=== PATIENT | male | born 1955 | race Caucasian/White ===

== ENCOUNTER → 2022-10-31 11:00 | Outpatient (BNVA) | payer MEDICARE, SELFPAY | PROVIDERS: Visit Provider Psychiatry & Neurology Psychiatry | DX: F41.1 Generalized anxiety disorder (principal); F98.8 Other specified behavioral and emotional disorders with onset usually occurring in childhood and adolescence; I10 Essential (primary) hypertension | CPT/HCPCS: 90833; 99212 ==

== ENCOUNTER → 2023-01-25 14:31 | Outpatient (BNVA) | payer MEDICARE, SELFPAY | PROVIDERS: PCP Internal Medicine; Visit Provider Psychiatry & Neurology Psychiatry | DX: F98.8 Other specified behavioral and emotional disorders with onset usually occurring in childhood and adolescence (principal); F90.9 Attention-deficit hyperactivity disorder, unspecified type; F41.1 Generalized anxiety disorder | CPT/HCPCS: 99212 ==

== ENCOUNTER → 2023-07-11 16:33 | Outpatient (BNVA) | payer MEDICARE, SELFPAY | PROVIDERS: PCP Internal Medicine; Visit Provider Psychiatry & Neurology Psychiatry | DX: F98.8 Other specified behavioral and emotional disorders with onset usually occurring in childhood and adolescence (principal); F41.1 Generalized anxiety disorder | CPT/HCPCS: 90833; 99212 ==

== ENCOUNTER 2023-09-06 16:50 | Outpatient (AMB) | payer MEDICARE, SELFPAY ==
--- NOTE | 2023-09-06 15:48 | MHC.OFFVISPS ---
Intake Vital Signs 09/06/23 15:56 BP 120/90 H Pulse 80 Intake Visit Reasons: depression Allergies Iodinated Contrast Media Allergy (Intermediate, Verified 10/31/22 11:11) Rash Medication List - Last Reconciled 09/06/23 by Toribio Echevarria MD bupropion HCl 100 mg PO DAILY metoprolol succinate ER 50 mg PO DAILY sertraline 100 mg PO DAILY HPI- Psychiatric Chief Complaint: depression HPI Narrative: Patient seen in psychiatric follow-up patient does have some periods of mild melancholy question of seasonally related perhaps some improvement with initial dose of well Wellbutrin he is being treated for hypertension. He has no longer on stimulants. Wellbutrin perhaps did increase interest and functional ambition no complaints of side effects continues on sertraline Past Psychiatric History: hx depression adhd was on sertraline adderall x yrs used to see dr aden Mental Status Exam Mental Status Exam Narrative: Mental Status Exam Narrative: Appearance: Casually dressed Behavior: Cooperative appropriate psychomotor: Within normal limits Speech: Normal volume and prosody Thought proccess logical and goal-directed Thought content: Future oriented Mood: Mild dysphoria Affect: Appropriate to mood full affect SI:denies HI:denies VH/AH:none Delusions: None Insight/judgment: Good insight and judgment Memory/cog: Intact Assessment and Plan Assessment & Plan (1) ADD (attention deficit disorder) without hyperactivity: Status: Acute Code(s): F98.8 - Other specified behavioral and emotional disorders with onset usually occurring in childhood and adolescence (2) Generalized anxiety disorder: Status: Acute Code(s): F41.1 - Generalized anxiety disorder Plan Patient to increase Wellbutrin to 100 mg twice a day monitor response patient call has good response and follow-up prescription For 200 mg continue sertraline Counseling and coordination of Care Pt. Self Management counseling: Breathing, Exercise and Behavior activation Medication management counseling: Effectiveness, Side effects and Dosing range Details: I spent [30] minutes reviewing the record, seeing the patient and documenting in the medical record. Counseling provided to the patient/caregiver as outlined below. Addressed patient/caregiver concerns regarding current medication regime including effective adherence. Addressed patient/caregiver concerns regarding diagnosis and prognosis including accuracy of diagnosis, prognosis over time, impact of diagnosis. Addressed patient/caregiver concerns regarding impact of recent stressors. 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
[2023-09-06 15:56] VITALS: BP 120/90; PULSE 80
== END 2023-09-06 16:51 | disposition home or self-care (01) ==
LOC: HO.HOP 16:50
PROVIDERS: PCP Internal Medicine; Visit Provider Psychiatry & Neurology Psychiatry
DX: F98.8 Other specified behavioral and emotional disorders with onset usually occurring in childhood and adolescence (principal); F41.1 Generalized anxiety disorder
CPT/HCPCS: 99214

== ENCOUNTER → 2023-09-06 16:50 | Outpatient (BNVA) | payer MEDICARE, SELFPAY | PROVIDERS: PCP Internal Medicine; Visit Provider Psychiatry & Neurology Psychiatry | DX: F98.8 Other specified behavioral and emotional disorders with onset usually occurring in childhood and adolescence (principal); F41.1 Generalized anxiety disorder | CPT/HCPCS: 99212 ==

== ENCOUNTER 2023-11-01 15:34 | Outpatient (AMB) | payer MEDICARE, SELFPAY ==
--- NOTE | 2023-11-01 15:45 | MHC.OFFVISPS ---
Intake Intake Visit Reasons: DEPRESSION Allergies Iodinated Contrast Media Allergy (Intermediate, Verified 10/31/22 11:11) Rash HPI- Psychiatric Chief Complaint: DEPRESSION HPI Narrative: Pt seen in f/u had some degree of seasonal deoression had not taken wellbutrin regularly ? hx of thoric out let syndrome has some r shoulder pain somewhat a motivational at times. Able to enjoy things history of ADD history of a motivation Past Psychiatric History: hx depression adhd was on sertraline adderall x yrs used to see dr aden Mental Status Exam Mental Status Exam Narrative: Mental Status Exam Narrative: Appearance: Casually dressed Behavior: Cooperative appropriate psychomotor: Within normal limits Speech: Normal volume and prosody Thought proccess logical and goal-directed Thought content: Future oriented Mood: Mild dysphoria Affect: Appropriate to mood full affect SI:denies HI:denies VH/AH:none Delusions: None Insight/judgment: Good insight and judgment Memory/cog: Intact Assessment and Plan Assessment & Plan (1) ADD (attention deficit disorder) without hyperactivity: Status: Acute Code(s): F98.8 - Other specified behavioral and emotional disorders with onset usually occurring in childhood and adolescence (2) Generalized anxiety disorder: Status: Acute Code(s): F41.1 - Generalized anxiety disorder (3) Dysthymia: Status: Acute Code(s): F34.1 - Dysthymic disorder Plan inc wellbutrin 200 am sertraline 100 hs restarting Wellbutrin target a motivational syndrome and ADD monitor blood pressure start back at 100 mg daily then increase to either 200 in the morning were 100 in the morning 100 13:00 Medications: Changed From bupropion HCl SR 100 mg PO DAILY 90 tabs 1RF To bupropion HCl SR 100 mg PO BID 180 tabs 1RF Refilled sertraline 100 mg PO DAILY 90 tabs 1RF Counseling and coordination of Care Pt. Self Management counseling: Maintenance-social rhythm and Behavior activation Medication management counseling: Effectiveness and Side effects Diagnosis and Prognosis Counseling: Problematic behaviors secondary to diagnosis and Adequacy of current interventions Details: I spent [38] minutes reviewing the record, seeing the patient and documenting in the medical record. Counseling provided to the patient/caregiver as outlined below. Addressed patient/caregiver concerns regarding current medication regime including effective adherence. Addressed patient/caregiver concerns regarding diagnosis and prognosis including accuracy of diagnosis, prognosis over time, impact of diagnosis. Addressed patient/caregiver concerns regarding impact of recent stressors. 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
== END 2023-11-01 16:33 | disposition home or self-care (01) ==
LOC: HO.HOP 15:34
PROVIDERS: PCP Internal Medicine; Visit Provider Psychiatry & Neurology Psychiatry
DX: F98.8 Other specified behavioral and emotional disorders with onset usually occurring in childhood and adolescence (principal); F41.1 Generalized anxiety disorder; F34.1 Dysthymic disorder
CPT/HCPCS: 90833; 99213

== ENCOUNTER → 2023-11-01 15:34 | Outpatient (BNVA) | payer MEDICARE, SELFPAY | PROVIDERS: PCP Internal Medicine; Visit Provider Psychiatry & Neurology Psychiatry | DX: F98.8 Other specified behavioral and emotional disorders with onset usually occurring in childhood and adolescence (principal); F41.1 Generalized anxiety disorder; F34.1 Dysthymic disorder; M25.511 Pain in right shoulder | CPT/HCPCS: 99212 ==

== ENCOUNTER 2024-05-15 14:25 | Outpatient (AMB) | payer MEDICARE, SELFPAY ==
--- NOTE | 2024-05-15 14:50 | A.OFFPSYCH_ITS ---
Intake Intake Visit Reasons: depression Allergies Iodinated Contrast Media Allergy (Intermediate, Verified 10/31/22 11:11) Rash Medication List - Last Reconciled 05/15/24 by Toribio Echevarria MD bupropion HCl SR 100 mg PO BID metoprolol succinate ER 50 mg PO DAILY sertraline 100 mg PO DAILY HPI- Psychiatric Chief Complaint: depression HPI Narrative: Pt generally doing ok mood has been ok somewhat amotivational. Did not complete trial of wellbutrin unclear if had inc dose in thye past to 200 mg. Pt states he has never been the same since stopping stimulants which he states helped him be more productive and fx. Past Psychiatric History: hx depression adhd was on sertraline adderall x yrs used to see dr aden Mental Status Exam Mental Status Exam Narrative: Mental Status Exam Narrative: Appearance: Casually dressed Behavior: Cooperative appropriate good eye contact psychomotor: Within normal limits Speech: Normal volume and prosody Thought proccess logical and goal-directed Thought content: Future oriented focused on quality of life issues comfortable in prison Mood: good Affect: Appropriate to mood full affect SI:denies HI:denies VH/AH:none Delusions: None Insight/judgment: Good insight and judgment Memory/cog: Intact Assessment and Plan Assessment & Plan (1) Generalized anxiety disorder: Status: Acute Code(s): F41.1 - Generalized anxiety disorder (2) ADD (attention deficit disorder) without hyperactivity: Status: Acute Code(s): F98.8 - Other specified behavioral and emotional disorders with onset usually occurring in childhood and adolescence Plan again discussed consideration of wellbutrin for seasonal issues and 4 history of ADD with motivational issues. Avoided stimulants after patient had untreated hypertension for extended period of time patient willing to retry Wellbutrin discussed need to monitor blood pressure Discussed light exposure daily walk Patient considering Wellbutrin he continues on sertraline Counseling and coordination of Care Pt. Self Management counseling: Light exposure and Behavior activation Medication management counseling: Effectiveness Diagnosis and Prognosis Counseling: Adequacy of current interventions Details: I spent [38] minutes reviewing the record, seeing the patient and documenting in the medical record. Counseling provided to the patient/caregiver as outlined below. Addressed patient/caregiver concerns regarding current medication regime including effective adherence. Addressed patient/caregiver concerns regarding diagnosis and prognosis including accuracy of diagnosis, prognosis over time, impact of diagnosis. Addressed patient/caregiver concerns regarding impact of recent stressors. 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
== END 2024-05-15 18:03 | disposition home or self-care (01) ==
LOC: HO.HOP 14:25
PROVIDERS: PCP Internal Medicine; Visit Provider Psychiatry & Neurology Psychiatry
DX: F41.1 Generalized anxiety disorder (principal); F98.8 Other specified behavioral and emotional disorders with onset usually occurring in childhood and adolescence
CPT/HCPCS: 90833; 99213

== ENCOUNTER → 2024-05-15 14:25 | Outpatient (BNVA) | payer MEDICARE, SELFPAY | PROVIDERS: PCP Internal Medicine; Visit Provider Psychiatry & Neurology Psychiatry | DX: F41.1 Generalized anxiety disorder (principal); F98.8 Other specified behavioral and emotional disorders with onset usually occurring in childhood and adolescence; F32.A Depression, unspecified | CPT/HCPCS: 99212 ==

== ENCOUNTER 2024-10-18 12:34 | Outpatient (AMB) | payer MEDICARE, SELFPAY ==
--- NOTE | 2024-10-18 12:50 | MHC.OFFVISPS ---
Intake Intake Visit Reasons: depression Allergies Iodinated Contrast Media Allergy (Intermediate, Verified 10/31/22 11:11) Rash HPI- Psychiatric Chief Complaint: depression HPI Narrative: Pt seen in f/u mood has been good feels wellbutrin helpful PHQ-9 0 patient generally doing well no complaints of side effects on sertraline and Wellbutrin. Past Psychiatric History: hx depression adhd was on sertraline adderall x yrs used to see dr aden Mental Status Exam Mental Status Exam Narrative: Mental Status Exam Narrative: Appearance: Casually dressed Behavior: Cooperative appropriate good eye contact psychomotor: Within normal limits Speech: Normal volume and prosody Thought proccess logical and goal-directed Thought content: Future oriented focused on quality of life ambivalent regarding adding structure Mood: good Affect: Appropriate to mood full affect SI:denies HI:denies VH/AH:none Delusions: None Insight/judgment: Good insight and judgment Memory/cog: Intact Assessment and Plan Assessment & Plan (1) Generalized anxiety disorder: Status: Acute Code(s): F41.1 - Generalized anxiety disorder (2) ADD (attention deficit disorder) without hyperactivity: Status: Acute Code(s): F98.8 - Other specified behavioral and emotional disorders with onset usually occurring in childhood and adolescence Plan pt generally doing okay history of ADD depression seems better with sertraline bupropion some mild winter blues. Encouraged regular excise patient see PCP regarding ongoing management of hypertension Medications: Refilled sertraline 100 mg PO DAILY 90 tabs 1RF bupropion HCl SR 100 mg PO BID 180 tabs 1RF Counseling and coordination of Care Pt. Self Management counseling: Behavior activation Medication management counseling: Effectiveness and Side effects Details-Med Mgmt counseling: Discussed potential side effects including elevated blood pressure Diagnosis and Prognosis Counseling: Adequacy of current interventions Details: I spent [25] minutes reviewing the record, seeing the patient and documenting in the medical record. Counseling provided to the patient/caregiver as outlined below. Addressed patient/caregiver concerns regarding current medication regime including effective adherence. Addressed patient/caregiver concerns regarding diagnosis and prognosis including accuracy of diagnosis, prognosis over time, impact of diagnosis. Addressed patient/caregiver concerns regarding impact of recent stressors. 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
== END 2024-10-18 12:58 | disposition home or self-care (01) ==
LOC: HO.HOP 12:34
PROVIDERS: PCP Internal Medicine; Visit Provider Psychiatry & Neurology Psychiatry
DX: F41.1 Generalized anxiety disorder (principal); F98.8 Other specified behavioral and emotional disorders with onset usually occurring in childhood and adolescence
CPT/HCPCS: 99213

== ENCOUNTER → 2024-10-18 12:34 | Outpatient (BNVA) | payer MEDICARE, SELFPAY | PROVIDERS: PCP Internal Medicine; Visit Provider Psychiatry & Neurology Psychiatry | DX: F41.1 Generalized anxiety disorder (principal); F98.8 Other specified behavioral and emotional disorders with onset usually occurring in childhood and adolescence | CPT/HCPCS: 99212 ==

== ENCOUNTER 2025-07-02 14:06 | Outpatient (AMB) | payer MEDICARE, SELFPAY ==
--- NOTE | 2025-07-02 14:41 | A.OFFPSYCH_ITS ---
Intake Intake Visit Reasons: depression Allergies Iodinated Contrast Media Allergy (Intermediate, Verified 10/31/22 11:11) Rash Medication List - Last Reconciled 07/02/25 by Toribio Echevarria MD bupropion HCl SR 100 mg PO BID metoprolol succinate ER 50 mg PO DAILY sertraline 100 mg PO DAILY HPI- Psychiatric Chief Complaint: depression HPI Narrative: The patient is a 70-year-old male with a history consistent with ADD The patient attended the psychiatric session primarily to address ongoing motivational and procrastination issues, potentially linked to untreated sleep apnea and current medication management. 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 The patient reported that these issues have been longstanding but have worsened recently. Despite taking bupropion, the patient indicated it has not significantly improved motivation. The patient stated experiencing good energy and motivation levels after midnight but struggles during the day. The patient reported using nighttime periods to accomplish tasks but acknowledged this is not sustainable. The patient also mentioned using a phone excessively as a distraction due to a lack of engaging reading material. The patient is concerned about being unmotivated and described this as a form of character flaw. MENTAL STATUS The patient stated, I don't feel depressed, and expressed not being unhappy with the world, but rather disappointed in personal behaviors and executive functioning abilities. PAIN The patient did not report any pain in this session. BACKGROUND The patient did not report any new allergies or medications. The patient confirmed continued use of metoprolol and bupropion. The patient noted having eye problems and possibly sleep apnea, which could be contributing to a lack of motivation. The patient experiences excessive daytime sleepiness and suspects sleep apnea but has not undergone a sleep study. ASSESSMENT The differential diagnosis includes untreated sleep apnea, which could be contributing to the patient's fatigue and lack of motivation. Atte ntion-Deficit/Hyperactivity Disorder (ADHD) is also suspected, given the patient's history and reported procrastination and focus issues. The lack of response to bupropion in terms of motivation suggests a need to reassess the current treatment plan and consider alternative or adjunctive therapies. Past Psychiatric History: hx depression adhd was on sertraline adderall x yrs used to see dr aden Mental Status Exam Mental Status Exam Narrative: Narrative: Appearance: Casually dressed somewhat sad and manner Behavior: Cooperative appropriate good eye contact psychomotor: Within normal limits Speech: Normal volume and prosody Thought proccess logical and goal-directed Thought content: Future oriented focused on difficulty fx procrastination Mood: dysphoric amotivated Affect: Appropriate to mood constricted SI:denies HI:denies VH/AH:none Delusions: None Insight/judgment: Good insight limited judgement re behavior Memory/cog: Intact Assessment and Plan Assessment & Plan (1) Dysthymia: Status: Acute Code(s): F34.1 - Dysthymic disorder (2) ADD (attention deficit disorder) without hyperactivity: Status: Acute Code(s): F98.8 - Other specified behavioral and emotional disorders with onset usually occurring in childhood and adolescence Plan Patient seems to have worsening lack of functioning and difficulty with motivation and attention. We discussed history of ADD marked by procrastination and may be significantly contributed to by consideration of obstructive sleep apnea which would significantly worsen lethargy attention motivation. This is affecting his paying bills maintaining a license taking care of himself in other ways. He does have a primary care physician he remains on a beta-berta Increase bupropion to 200 in the morning 100 in the afternoon monitor blood p ressure hopefully this will help motivation attention and mood. Strongly urged sleep study Medications: Changed From bupropion HCl SR 100 mg PO BID 180 tabs 1RF To bupropion HCl SR 2 am 1 aft 100 mg PO DIRECTED 180 tabs 1RF Counseling and coordination of Care Details-Self Mgmt counseling: Issues related to executive function procrastination Medication management counseling: Effectiveness, Side effects and Dosing range Diagnosis and Prognosis Counseling: Impact of diagnosis on life functions, Problematic behaviors secondary to diagnosis and Adequacy of current interventions Details: I spent [38] minutes reviewing the record, seeing the patient and documenting in the medical record. Counseling provided to the patient/caregiver as outlined below. Addressed patient/caregiver concerns regarding current medication regime including effective adherence. Addressed patient/caregiver concerns regarding diagnosis and prognosis including accuracy of diagnosis, prognosis over time, impact of diagnosis. Addressed patient/caregiver concerns regarding impact of recent stressors. 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
--- OUTSIDE RECORDS SUMMARY | 2025-07-03 02:28 | XMS_ITS ---
Author Organization Unknown ENCOUNTERS Encounter Performer Location Date Diagnosis Diagnosis Status Outpatient [address] [id number] [address]patient [address] [id number] Outpatient WENDI ANDERSON [address] [id number] [facility] [address] [id number] [facility] [address] [id number] Outpatient [address] [id number] Outpatient [address] [id number] Outpatient AZIZA MENENDEZ MD [address] [id number] Outpatient [address] [address] [id number] *Note: Encounters from your own facility or health system may be excluded. Allergies, Adverse Reactions, Alerts Allergen Type Severity Identification Date Medications Name Date Quantity Days Supplied GPI Number
== END 2025-07-02 14:45 | disposition home or self-care (01) ==
LOC: HO.HOP 14:06
PROVIDERS: PCP Internal Medicine; Visit Provider Psychiatry & Neurology Psychiatry
DX: F34.1 Dysthymic disorder (principal); F98.8 Other specified behavioral and emotional disorders with onset usually occurring in childhood and adolescence
CPT/HCPCS: 90833; 99213

== ENCOUNTER → 2025-07-02 14:06 | Outpatient (BNVA) | payer MEDICARE, SELFPAY | PROVIDERS: PCP Internal Medicine; Visit Provider Psychiatry & Neurology Psychiatry | DX: F34.1 Dysthymic disorder (principal); F98.0 Enuresis not due to a substance or known physiological condition | CPT/HCPCS: 99212 ==